=== PATIENT | male | born 1965 | race Caucasian/White ===

== ENCOUNTER → 2018-04-13 | Outpatient (CLI) | payer OTHER ==
[~2018-04-13] VITALS: Ht 180.3 cm; Wt 85.3 kg
[~2018-04-13] MED LIST: VIAGRA100 MG PO
== END | disposition home or self-care (01) ==
LOC: AMB 09:10
PROC: 0DJD8ZZ Inspection of Lower Intestinal Tract, Via Natural or Artificial Opening Endoscopic (ICD-10-PCS; principal; 2018-04-13)
DX: Z12.11 Encounter for screening for malignant neoplasm of colon (principal); K64.8 Other hemorrhoids; K64.4 Residual hemorrhoidal skin tags; Z87.891 Personal history of nicotine dependence
CPT/HCPCS: J2250